=== PATIENT | male | born 1940 | race Caucasian/White ===

== ENCOUNTER 2019-05-11 13:57 | Emergency (ER) | payer MEDICARE, OTHER ==
[~2019-05-11] VITALS: Ht 177.8 cm; Wt 111.4 kg
[~2019-05-11 13:57] MED LIST: AVODART0.5 MG PO; CALCIUM CITRAT200 MG PO; CENTRUM SILVER1 TA1 PO; OCUVITE1 TA1 PO; VITAMIN C BUFF500 MG PO
[2019-05-11 14:06] VITALS: BP 142/88; TEMP 97.8
[2019-05-11 15:19] LABS: BASO # 0.1 (0.0-0.2); BASO % 0.6 % (0.0-2.0); EOS % 0.3 % (0-4.0); GRAN # 6.9 (1.4-6.5); GRAN % 86.4 % (42.2-75.2); HEMATOCRIT 43.3 % (42.0-52.0); HEMOGLOBIN 14.8 g/dl (13.5-18.0); LYMPH # 0.5 (1.2-3.4); LYMPH % 6.5 % (20.0-51.0); MEAN CELL VOLUME 97 fl (80.0-100.0); MEAN CORPUSCULAR HEMOGLOBIN 33 pg (27.0-31.0); MEAN CORPUSCULAR HGB CONC 34 g/dl (33.0-37.0); MEAN PLATELET VOLUME 11.6 fl (7.4-10.4); MONO # 0.5 (0.1-0.6); MONO % 5.8 % (1.7-9.3); PLATELET COUNT 163 K/mm3 (130-400); RED BLOOD COUNT 4.46 M/mm3 (4.20-5.60); REDCELL DISTRIBUTION WIDTH-CV 12.7 % (11.5-14.5)
[2019-05-11 15:33] LABS: ALANINE AMINOTRANSFERASE 21 U/L (4-49); ALBUMIN 4.3 gm/dL (3.5-5.0); ALKALINE PHOSPHATASE 83 U/L (50-136); ANION GAP 12 mmol/L (7-16); AST,SGOT 30 U/L (15-37); BILIRUBIN,TOTAL 0.6 mg/dL (0.0-1.0); BLOOD UREA NITROGEN 30 mg/dL (9-20); CALCIUM 10.3 mg/dL (8.4-10.2); CARBON DIOXIDE 22 mmol/L (22-30); CHLORIDE 105 mmol/L (98-107); CREATININE, serum 1.25 (0.66-1.25); GLUCOSE 113 mg/dL (74-106); LIPASE 68 U/L (23-300); POTASSIUM 4.6 mmol/L (3.4-5.0); SODIUM 139 mmol/L (137-145); TOTAL PROTEIN 7.6 gm/dL (6.4-8.2)
[2019-05-11 15:36] LABS: C-REACTIVE PROTEIN < 0.5 mg/dL (0.0-0.9)
[2019-05-11 15:43] LABS: COLLECTION METHOD CLEAN CATCH
[2019-05-11 15:49] LABS: MUCOUS Present /lpf; PH 5 (5-8); SQUAMOUS EPITHELIAL 0-2 /hpf; URINE APPEARANCE Hazy; URINE BACTERIA None Seen /hpf; URINE BILIRUBIN Negative (NEGATIVE); URINE BLOOD 2+ (NEGATIVE); URINE COLOR Yellow; URINE GLUCOSE Negative (NEGATIVE); URINE KETONE Trace (NEGATIVE); URINE LEUKOCYTE ESTERASE Negative (NEGATIVE); URINE NITRATE Negative (NEGATIVE); URINE PROTEIN(semi-quant) Negative (NEGATIVE); URINE RBC >50 /hpf; URINE UROBILINOGEN Negative (NEGATIVE)
[2019-05-11] MEDS ORDERED: NORCO 325 MG-51 TAB PO (16:05)
[2019-05-11 16:20] VITALS: PULSE 71
== END 2019-05-11 16:20 | disposition home or self-care (01) ==
LOC: COL.ER 13:57
PROVIDERS: Family Medicine
DX: N20.1 Calculus of ureter (principal)
CPT/HCPCS: J2270; J2405; J7120

== ENCOUNTER 2020-11-26 07:46 | Inpatient (IN) | payer MEDICARE, OTHER ==
[~2020-11-26] VITALS: Ht 175.3 cm; Wt 106.0 kg
[~2020-11-26 07:46] MED LIST changes: -CENTRUM SILVER1 TA1 PO; +CENTRUM SILVER1 TAB PO; +NORCO 325 MG-51 TAB PO
[2020-11-26 08:20] LABS: HEMOGLOBIN 12.2 g/dl (13.5-18.0); MEAN CELL VOLUME 100 fl (80.0-100.0); MEAN CORPUSCULAR HEMOGLOBIN 34 pg (27.0-31.0); MEAN CORPUSCULAR HGB CONC 34 g/dl (33.0-37.0); MEAN PLATELET VOLUME 11.5 fl (7.4-10.4); PLATELET COUNT 176 K/mm3 (130-400); RED BLOOD COUNT 3.64 M/mm3 (4.20-5.60); REDCELL DISTRIBUTION WIDTH-CV 13.7 % (11.5-14.5)
[2020-11-26 08:25] LABS: HEMATOCRIT 36.4 % (42.0-52.0)
[2020-11-26 08:36] LABS: ALBUMIN 3.5 gm/dL (3.4-4.8); BILIRUBIN,TOTAL 0.7 mg/dL (0.2-1.2); C-REACTIVE PROTEIN 2.5 mg/dL (0.00-0.50); CALCIUM 9.4 mg/dL (8.4-10.2); CREATININE, serum 1.03 mg/dL (0.72-1.25); POTASSIUM 3.9 mmol/L (3.5-4.5); TOTAL PROTEIN 6.6 gm/dL (6.2-8.1)
[2020-11-26 08:55] LABS: ERYTHROCYTE SEDIMENTATION RATE 16 mm/hr (0-30)
[2020-11-26 09:45] LABS: LYMPHOCYTE 4 % (20.0-51.0); NEUTROPHILS 90 % (42.0-75.2); PLATELET ESTIMATE NORMAL (NORMAL)
[2020-11-26] MEDS ORDERED: GLUCOSAMIN 500 (10:40)
[2020-11-26] MEDS ORDERED: EPA FISH OIL1 SGL PO (10:41)
[2020-11-26] MEDS ORDERED: COLLAGEN PLUS PO (10:42)
[2020-11-26] MEDS ORDERED: OXYCODONE H5 MG/5 ML PO (10:43)
[2020-11-26] MEDS ORDERED: ASPIRIN 81M81 MG/TA2 PO (10:43)
[2020-11-26] MEDS ORDERED: CELEBREX 200MG200 MG PO (10:44)
[2020-11-26 10:48] VITALS: BP 123/66; PULSE 83; TEMP 98.4
--- NOTE | 2020-11-26 11:00 | NUR ---
Patient arrived to room 349 from OR. Alert and oriented x 3. spouse at bedside. Patient denies pain at this time. Patient and spouse oriented to room. Patient denies needs at this time.
--- NOTE | 2020-11-26 11:16 | NUR ---
Contacted Dr. Lamar about patient orders.
[2020-11-26 12:55] VITALS: BP 112/74; PULSE 82; TEMP 97.7
[2020-11-26 16:12] VITALS: BP 120/63; PULSE 83; TEMP 98.3
--- NOTE | 2020-11-26 19:12 | NUR ---
Patient doing well throughout the day. States pain is better when sitting up in recliner as opposed to laying in bed. Patient given 1 dose of pain meds after CT. Denies pain or further needs at this time. 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
[2020-11-26 19:26] VITALS: BP 108/72; PULSE 76; TEMP 98
--- NOTE | 2020-11-26 21:00 | NUR ---
PT IN RECLINER CHAIR, DENIES PAIN AT THIS TIME. HAS SL TO LEFT HAND. HAS REDNESS AND WARMTH TO LEFT HIP, HEALING INCISION. ASSISTED TO BATHROOM WITH WALKER, GAIT SLOW AND STEADY. VOIDS AND BACK TO RECLINER CHAIR. ICE PACK APPLIED TO LEFT HIP. ICE CREAM SNACK GIVEN.
[2020-11-26] MEDS ORDERED: ROXICODONE 55 MG/TAB PO ×2 (21:29→21:38)
--- NOTE | 2020-11-26 23:45 | NUR ---
MEDICATED WITH NORCO 1 TAB PO FOR LEFT HIP PAIN.
[2020-11-27 01:00] VITALS: BP 126/68; PULSE 84; TEMP 99.1
[2020-11-27 03:31] VITALS: BP 119/67; PULSE 75; TEMP 99
--- NOTE | 2020-11-27 04:00 | NUR ---
PT RESTING IN RECLINER AT BEDSIDE. DENIES NEED FOR PAIN MEDS AT THIS TIME.
[2020-11-27 08:00] VITALS: BP 107/65; PULSE 82; TEMP 98.5
--- NOTE | 2020-11-27 08:00 | NUR ---
PATIENT IS A&O. VSS. PATIENT DENIES PAIN OR NAUSEA. LEFT HIP IS RED/WARM/SWOLLEN. 1 ASSIST WITH ACTIVITY. PT/OT CONSULTED. DNR STATUS. HEAD TO TOE ASSESSMENT COMPLETE LEFT HAND IV TO INT. NO OTHER NEEDS. CALL LIGHT IN REACH.
[2020-11-27 08:20] LABS: BASO % 0.4 % (0.0-2.0); EOS % 0.3 % (0-4.0); GRAN % 80.2 % (42.2-75.2); HEMOGLOBIN 11.4 g/dl (13.5-18.0); LYMPH # 0.7 K/mm3 (1.2-3.4); LYMPH % 6.1 % (20.0-51.0); MEAN CELL VOLUME 100 fl (80.0-100.0); MEAN CORPUSCULAR HEMOGLOBIN 34 pg (27.0-31.0); MEAN CORPUSCULAR HGB CONC 34 g/dl (33.0-37.0); MONO # 1.4 K/mm3 (0.1-0.6); MONO % 12.6 % (1.7-9.3); PLATELET COUNT 155 K/mm3 (130-400); RED BLOOD COUNT 3.37 M/mm3 (4.20-5.60); REDCELL DISTRIBUTION WIDTH-CV 14.2 % (11.5-14.5)
[2020-11-27 08:23] LABS: HEMATOCRIT 33.8 % (42.0-52.0)
[2020-11-27 08:31] LABS: CALCIUM 9.1 mg/dL (8.4-10.2); CREATININE, serum 0.88 mg/dL (0.72-1.25); PHOSPHOROUS 2.5 mg/dL (2.3-4.7)
--- NOTE | 2020-11-27 10:10 | NUR ---
CALLED, SEE ORDERS FOR RADIOLOGY CONSULT FOR LEFT HIP ASPIRATION. TO CALL ILANA
--- NOTE | 2020-11-27 13:47 | NUR ---
Antonina met with the pt who stated his perference to return home once medially stable. The pt lives at home with his , Vanessa [phone]. The is independent and still drives. He does use a walker the last couple of weeks. The pt does have a DPOA-HC. The pt pcp is dr. mcleod and gets his medications from [facility]. No other needs stated at this time. Sw to await further recommendations and follow up as needed. D/c: Home.
--- NOTE | 2020-11-27 16:00 | NUR ---
CALLED AND GAVE VERBAL ORDER TO START [facility], PHARMACY TO DOSE.
[2020-11-27 16:16] VITALS: BP 135/80; PULSE 85; TEMP 98.5
[2020-11-27 20:34] VITALS: BP 130/75; PULSE 80; TEMP 99.1
--- NOTE | 2020-11-27 20:49 | NUR ---
Vancomycin Initial Dosing Pharmacy Note Ordering provider: Hernan Lamar MD Indication/duration: Possible joint infection 3 weeks s/p hip replacement/ 5 days. Relevant comorbidities: N/A LABS: WBC = 11.2, SCr = 0.88 Recommendation: Will draw troughs and follow levels. Loading dose: 2 grams Maintenance dose: 1.25 grams every 12 hours Trough goal: 15-20 ug/mL
--- NOTE | 2020-11-27 21:35 | NUR ---
PT ASSISTED TO BED. HAS IV VANCOMYCIN INFUSING TO LEFT HAND SITE WITHOUT REDNESS OR SWELLING. PT HAD HOME MEDS AT BEDSIDE, REMOVED AND PLACED IN PHARMACY. DENIES PAIN. REMOVED BANDAID FROM LEFT UPPER HIP/THIGH FROM ASPIRATION TODAY. LEFT HIP REMAINS EDEMATOUS AND REDDENED. HAS COMPRESSION HOSE ON BILATERALLY.
--- NOTE | 2020-11-27 23:00 | NUR ---
PT ASSISTED TO RECLINER, NOT COMFORTABLE IN BED. CALL LIGHT WITHIN REACH.
[2020-11-27 23:19] VITALS: BP 120/61; PULSE 82; TEMP 98.3
[2020-11-28 05:09] VITALS: BP 117/72; PULSE 67; TEMP 97.4
--- NOTE | 2020-11-28 06:00 | NUR ---
PT REMAINS IN RECLINER AT BEDSIDE. HAS LEGS ELEVATED, DENIES PAIN AT THIS TIME.
--- NOTE | 2020-11-28 08:00 | NUR ---
PATIENT IS A&O. VSS. PATIENT DENIES PAIN OR NAUSEA. LEFT HIP IS RED/WARM/SWOLLEN. VANCO IV INFUSING PER ORDERS. LEFT WRIST IV LEAKING, DC'D IV SITE & COVERED WITH GAUZE. RE-STARTED IV INTO LEFT FORARM, VANCO INFUSING. 1 ASSIST WITH ACTIVITY. PT/OT CONSULTED. DNR STATUS. HEAD TO TOE ASSESSMENT COMPLETE LEFT HAND IV TO INT. NO OTHER NEEDS. CALL LIGHT IN REACH.
[2020-11-28 08:24] LABS: BASO % 0.4 % (0.0-2.0); EOS # 0.1 K/mm3 (0.0-0.7); EOS % 0.9 % (0-4.0); GRAN % 75.9 % (42.2-75.2); HEMOGLOBIN 11.7 g/dl (13.5-18.0); LYMPH # 0.8 K/mm3 (1.2-3.4); LYMPH % 10.2 % (20.0-51.0); MEAN CELL VOLUME 100 fl (80.0-100.0); MEAN CORPUSCULAR HEMOGLOBIN 33 pg (27.0-31.0); MEAN CORPUSCULAR HGB CONC 33 g/dl (33.0-37.0); MEAN PLATELET VOLUME 11.8 fl (7.4-10.4); MONO % 12.3 % (1.7-9.3); PLATELET COUNT 179 K/mm3 (130-400); RED BLOOD COUNT 3.54 M/mm3 (4.20-5.60); REDCELL DISTRIBUTION WIDTH-CV 13.8 % (11.5-14.5)
[2020-11-28 08:25] VITALS: BP 125/69; PULSE 82; TEMP 98
[2020-11-28 08:26] LABS: HEMATOCRIT 35.5 % (42.0-52.0)
[2020-11-28 08:43] LABS: ALBUMIN 3.1 gm/dL (3.4-4.8); CALCIUM 9.6 mg/dL (8.4-10.2); CREATININE, serum 0.94 mg/dL (0.72-1.25); MAGNESIUM 1.9 mg/dL (1.6-2.6); PHOSPHOROUS 2.7 mg/dL (2.3-4.7); POTASSIUM 3.7 mmol/L (3.5-4.5)
[2020-11-28 15:58] VITALS: BP 122/68; PULSE 73; TEMP 98.7
[2020-11-28 19:16] VITALS: BP 123/67; PULSE 82; TEMP 98.2
--- NOTE | 2020-11-28 20:45 | NUR ---
Pt. sitting up in chair at this time. Pt. is A&OX3, assessment complete. INT to lt. wrist unable to flush. New site started to lt. forearm. 22g, 1 atempt. Pt. tolerated well. INT to lt. wrist discontinued. Pt. denies pain or other needs, call light within reach.
[2020-11-28 23:28] VITALS: BP 135/74; PULSE 80; TEMP 98.3
[2020-11-29 03:47] VITALS: BP 126/74; PULSE 81; TEMP 98
[2020-11-29 06:45] LABS: BASO % 0.3 % (0.0-2.0); EOS # 0.1 K/mm3 (0.0-0.7); EOS % 0.7 % (0-4.0); GRAN # 5.2 K/mm3 (1.4-6.5); GRAN % 75.2 % (42.2-75.2); LYMPH # 0.8 K/mm3 (1.2-3.4); MEAN CELL VOLUME 100 fl (80.0-100.0); MEAN CORPUSCULAR HEMOGLOBIN 33 pg (27.0-31.0); MEAN CORPUSCULAR HGB CONC 33 g/dl (33.0-37.0); MEAN PLATELET VOLUME 11.7 fl (7.4-10.4); MONO # 0.9 K/mm3 (0.1-0.6); MONO % 12.5 % (1.7-9.3); PLATELET COUNT 189 K/mm3 (130-400); RED BLOOD COUNT 3.33 M/mm3 (4.20-5.60); REDCELL DISTRIBUTION WIDTH-CV 13.5 % (11.5-14.5)
[2020-11-29 06:49] LABS: HEMATOCRIT 33.4 % (42.0-52.0)
[2020-11-29 07:02] LABS: C-REACTIVE PROTEIN 12.5 mg/dL (0.00-0.50); CALCIUM 9.4 mg/dL (8.4-10.2); CREATININE, serum 0.95 mg/dL (0.72-1.25); POTASSIUM 3.8 mmol/L (3.5-4.5)
[2020-11-29 07:49] VITALS: BP 131/74; PULSE 76; TEMP 97.9
[2020-11-29 12:15] VITALS: BP 137/83; PULSE 74; TEMP 98.2
--- NOTE | 2020-11-29 12:15 | NUR ---
Patient is doing well today. His main complaint is that he keeps belching when he eats. He did not mention this to me but the personnel research psychologist spoke with me about it. Giving him mylicon to see if works. No compalints of pain or nausea. He has been getting around the room well. He is also worried about getting constipated but did not want anything to help him have a bowel movement. No other changes at this time. Call light within reach.
[2020-11-29] MEDS ORDERED: PEPCID 20MG TAB20 MG PO (15:43)
[2020-11-29] MEDS ORDERED: DOXYCYCLINE 10100 MG PO (15:44)
--- NOTE | 2020-11-29 18:00 | NUR ---
Patient is discharging home. Discharge instructions discussed with patient. No questions verbalized. INT discontinued. Explained when follow up appointments are. Patient had a few questions, answered them and explained he has education and paperwork that has info on it if he forgets. All belongings packed up and sent with patient. Home medications from pharmacy returned to patient. Copies of discharge instructions sent with patient. Patient walked out via wheelchair by Dali GARCIA
== END 2020-11-29 18:14 | disposition home or self-care (01) | DRG 863 ==
LOC: COL.ER 07:46 → SURG 09:19
PROVIDERS: Emergency Medicine; Physician Assistant; ADMIT Internal Medicine
PROC: 0Y9D30Z Drainage of Left Upper Leg with Drainage Device, Percutaneous Approach (ICD-10-PCS; principal; 2020-11-27)
DX: T81.49XA Infection following a procedure, other surgical site, initial encounter (principal); L03.116 Cellulitis of left lower limb; T84.52XA Infection and inflammatory reaction due to internal left hip prosthesis, initial encounter; M96.840 Postprocedural hematoma of a musculoskeletal structure following a musculoskeletal system procedure; Z96.653 Presence of artificial knee joint, bilateral; Z96.641 Presence of right artificial hip joint; R14.2 Eructation; R01.1 Cardiac murmur, unspecified
CPT/HCPCS: OP; 99232-AI; 99233-AI; G0378; J2270; J3370; J7030; J7050